=== PATIENT | female | born 1980 | race African-American/Black ===

== ENCOUNTER 2017-05-12 07:45 | Emergency (ER) | payer MEDICAID ==
[~2017-05-12] VITALS: Ht 170.2 cm; Wt 110.0 kg
[~2017-05-12 07:45] MED LIST: CHLO.12%30 SWISH-SPIT; CLIN150 PO; IBUP800T23 PO; MMW SWISH-SPIT
[2017-05-12 07:48] VITALS: BP 164/89; PULSE 100; RESP 18; TEMP 98.6; O2SAT 97
--- NOTE | 2017-05-12 07:59 | PD ---
HPI Chief Complaint: Cold / Flu Symptoms Time Seen by Provider: 07:59 Travel History International Travel<30 days: No Contact w/Intl Traveler<30days: No Traveled to known affect area: No History of Present Illness HPI 37-year-old female came to the emergency room with history of cough, shortness of breath for past 4-5 days. Patient says initially there was some fever but that has subsided. Patient has been afebrile for past 24 hours. She did appear to be in moderate distress. Vital signs are relatively stable in the triage. She has not been diagnosed with asthma or COPD but has required inhalers and breathing treatments in the past. She is a smoker for past 15 years. Patient is complaining of some generalized chest pain which is mostly like a tightness and ache. No aggravating or relieving factors. [facility] Past Medical History Narrative Medical List of her past medical, surgical, social and family history is reviewed from the nursing note. Cirrhosis: No Diminished Hearing: No Hypertension: Yes Kidney Stones: Yes Respiratory: Yes (INFECTION) ?: Not Past Surgical History Section: Yes Cholecystectomy: Yes Social History Alcohol Use: Yes (X1 PER MONTH) Tobacco Use: Yes (LESS THAN ONE PPD) Substance Use: No Allergies-Medications (Allergen,Severity, Reaction): Coded Allergies: No Known Allergies (Verified Adverse Reaction, Unknown, 05/12/17) Comments No known drug allergies. Reported Meds & Prescriptions Reported Meds & Active Scripts Active Prednisone 20 Mg Tab 20 Mg PO BID 5 Days Ventolin Hfa 18 GM Inh (Albuterol Sulfate) 90 Mcg/Act Aer 2 Puff INH Q4-6H PRN Narrative Medication List of her medications reviewed from the nursing note. Review of Systems Except as stated in HPI: all other systems reviewed are Neg Cardiovascular: Positive: Chest Pain or Discomfort Respiratory: Positive: Cough, Shortness of Breath Physical Exam Narrative GENERAL: Awake, alert, moderate distress SKIN: Focused skin assessment warm/dry. HEAD: Atraumatic. Normocephalic. EYES: Pupils equal and round. No scleral icterus. No injection or drainage. ENT: No nasal bleeding or discharge. Mucous membranes pink and moist. NECK: Trachea midline. No JVD. CARDIOVASCULAR: Regular rate and rhythm. No murmur appreciated. RESPIRATORY: Decreased air entry bilaterally with end expiratory wheeze GASTROINTESTINAL: Abdomen soft, non-tender, nondistended. Hepatic and splenic margins not palpable. MUSCULOSKELETAL: No obvious deformities. No clubbing. No cyanosis. No edema. NEUROLOGICAL: Awake and alert. No obvious cranial nerve deficits. Motor grossly within normal limits. Normal speech. PSYCHIATRIC: Appropriate mood and affect; insight and judgment normal. Data Data Last Documented VS Vital Signs Date Time Temp Pulse Resp B/P (MAP) Pulse Ox O2 Delivery O2 Flow Rate FiO2 05/12/17 10:42 05/12/17 08:50 97 Aerosol Mask 8.00 05/12/17 08:06 98 18 05/12/17 07:48 98.6 Orders Orders Chest, Pa & Lat (05/12/17 08:16) Ecg Monitoring (05/12/17 08:16) Iv Access Insert/Monitor (05/12/17 08:16) Oximetry (05/12/17 08:16) Oxygen Administration (05/12/17 08:16) Prednisone (Deltasone) (05/12/17 08:30) Albuterol-Ipratropium Neb (Duoneb Neb) (05/12/17 08:30) Sodium Chloride 0.9% Flush (Ns Flush) (05/12/17 08:30) Influenzae A/B Antigen (05/12/17 08:16) Albuterol Neb (Albuterol Neb) (05/12/17 10:00) Ed Discharge Order (05/12/17 10:06) Electrocardiogram (05/12/17 ) [facility] Medical Decision Making Medical Screen Exam Complete: Yes Emergency Medical Condition: Yes Medical Record Reviewed: Yes Interpretation(s) EKG was reviewed by me. Normal sinus rhythm, normal axis, nonspecific ST-T wave changes. Heart rate of 80 bpm Differential Diagnosis Acute COPD exacerbation, pneumonia, bronchitis Narrative Course 10:13 AM patient was given DuoNeb 3 and prednisone. I reassessed her and she feels better. Patient still continues to wheeze although it's better than before. Ordered 3 more albuterol and she will be discharged home. She was given instructions to not smoke or she is not going to get better. She understands. Procedures EKG Prior to Arrival: No Diagnosis Primary Impression: COPD with acute exacerbation Additional Impression: Needs smoking cessation education Referrals: Primary Care Physician 2 days Additional Instructions: You should quit smoking or rales the condition is currently worsen. Take the medication as per the prescription direction. Return to the ER if the condition worsens or any other new concerns. Med/Other Pt SpecificInfo: Prescription(s) given Scripts Prednisone (Prednisone) 20 Mg Tab 20 MG PO BID for 5 Days, #10 TAB 0 Refills Prov: Jordan Jones MD 05/12/17 Albuterol 18 GM Inh (Ventolin Hfa 18 GM Inh) 90 Mcg/Act Aer 2 PUFF INH Q4-6H Y for SHORTNESS OF BREATH, #1 INHALER 0 Refills Prov: Jordan Jones MD 05/12/17 Disposition: 01 DISCHARGE HOME Condition: Stable Jordan Jones MD May 12, 2017 07:59
[2017-05-12] MEDS ORDERED: predniSONE 20 MG TAB PO ONE (08:30)
[2017-05-12] MEDS ORDERED: SODIUM CHLORIDE 0.9% FLUSH 10 ML FLUSH IVF PRN (08:30)
[2017-05-12] MEDS: RESP: ALBUTEROL 2.5 MG/IPRATROPIUM 0.5 MG NEB (SCH) INH ×2 (08:44→08:45)
--- NOTE | 2017-05-12 09:06 | RADRPT ---
EXAM DATE/TIME: 05/12/2017 08:37 [facility] COMPARISON: CHEST PA & LAT, July 27, 2013, 8:04. INDICATIONS : Cough and wheezing. MEDICAL HISTORY : None. SURGICAL HISTORY : None. ENCOUNTER: Initial ACUITY: 1 week PAIN SCORE: 2/10 LOCATION: Bilateral chest FINDINGS: PA and lateral views of the chest demonstrate the lungs to be symmetrically aerated without evidence of mass, infiltrate or effusion. The cardiomediastinal contours are unremarkable. Osseous structure s are intact. CONCLUSION: No acute disease. Kulwinder Rush MD on May 12, 2017 at 9:04 Board Certified Radiologist. This report was verified electronically.
[2017-05-12] MEDS: RESP: ALBUTEROL 2.5 MG/3 ML NEB (SCH) INH ×2 (10:05→10:06)
[2017-05-12] MEDS ORDERED: VENTAER INH (10:06)
[2017-05-12] MEDS ORDERED: PRED20 PO (10:06)
--- NOTE | 2017-05-12 17:40 | EKG ---
Date Performed: 05/12/2017 Time Performed: 10:35:46 PTAGE: 37 years EKG: Sinus rhythm POSSIBLE LEFT ATRIAL ENLARGEMENT NONSPECIFIC T-WAVE ABNORMALITY BORDERLINE ECG NO PREVIOUS TRACING DOCTOR: Nazario Peoples Interpretating Date/Time 05/12/2017 17:38:52
== END 2017-05-12 10:43 | disposition home or self-care (01) ==
LOC: NEPE 07:45
DX: J44.1 Chronic obstructive pulmonary disease with (acute) exacerbation (principal); F17.210 Nicotine dependence, cigarettes, uncomplicated; I10 Essential (primary) hypertension
CPT/HCPCS: 71020; 87804; 93005; 94640; 94664; 99285; J7512; J7613